=== PATIENT | female | born 1965 | race Caucasian/White ===

== ENCOUNTER → 2023-10-16 | Outpatient (CLI) | payer SELFPAY, OTHER ==
--- NOTE | 2023-10-16 06:44 | MRI_ITS ---
STUDY: MRI BRAIN WITHOUT CONTRAST REASON FOR EXAM: Female, 58 years old. CEREBRAL INFARCT TECHNIQUE: Standardized multiplanar fat and water weighted pulse sequences were obtained. COMPARISON: CT 03/20/2023 FINDINGS: There is mild cerebral atrophy with widening of the extra-axial spaces and ventricular dilatation. There are a limited number of small white matter hyperintensities, distributed throughout the deep white matter tracts of the cerebral hemispheres, consistent with mild chronic white matter ischemic changes. Large area of encephalomalacia and gliosis in the right parietal lobe consistent with a chronic right middle cerebral artery infarct. There is no evidence for recent intracranial ischemia or other cause of cytotoxic edema on diffusion weighted imaging (DWI). Normal T2* images of the brain without demonstrated susceptibility artifact. There is no demonstrated hemosiderin stain. Normal bilateral basal ganglia. Normal thalami. There is no extra-axial fluid accumulation. Normal flow voids within the major intracranial circulation suggesting patency by spin echo criteria. Normal sella turcica, pituitary gland, infundibular stalk, optic chiasm and hypothalamus. Normal tectal plate and pineal gland. Normal midbrain, catrina and medulla. Normal cerebellum. Normal basal cisterns. Normal bilateral temporal bones. Normal bilateral internal auditory canals. No demonstrated orbital abnormality, within the constraints of a routine brain study. Normal visualized paranasal sinuses. Normal calvarium and skull base. Normal visualized soft tissue structures. Normal visualized upper cervical spine. MRI/Brain without Contrast IMPRESSION: Involutional changes of the brain, as described above. Large prior right middle cerebral artery infarct with encephalomalacia and gliosis. No acute infarct. Electronically Signed: Maykel Ware MD at 14:34 EDT ,
--- NOTE | 2023-10-16 06:44 | MRI_ITS ---
STUDY: MRA OF THE HEAD WITHOUT CONTRAST REASON FOR EXAM: Female, 58 years old. CEREBRAL INFARCT TECHNIQUE: 3-D [id number] (TOF) imaging was performed with MIPs. The study was performed unenhanced. COMPARISON: None. FINDINGS: Normal bilateral petrous carotid arteries. Normal right cavernous carotid artery with a normal supraclinoid bifurcation. Normal left cavernous carotid artery with a normal supraclinoid bifurcation. Normal right A1 segments of the anterior cerebral artery. Normal left A1 segments of the anterior cerebral artery. Normal intact anterior communicating artery (ACOM). Normal bilateral A2 segments of the anterior cerebral arteries. Normal right M1 and M2 segments of the middle cerebral arteries, with a normal M1 bifurcation. Normal left M1 and M2 segments of the middle cerebral arteries, with a normal M1 bifurcation. Normal right posterior communicating artery (PCOM). Normal left posterior communicating artery (PCOM). Normal bilateral vertebral arteries. Normal basilar artery with a normal basilar bifurcation. The visualized bilateral superior cerebellar (SCA) arteries are normal. Normal bilateral P1, P2 and visualized P3 segments of the posterior cerebral arteries. There is no demonstrated aneurysm of the [place]. There is no major vessel occlusion or hemodynamically significant stenosis. There is no demonstrated abnormality of the visualized brain. MRI/MRA Head ONLY without Contrast IMPRESSION: Normal MRA of the head Electronically Signed: Maykel Ware MD at 14:40 EDT ,
--- NOTE | 2023-10-16 06:45 | MRI_ITS ---
STUDY: MRA NECK WITHOUT CONTRAST REASON FOR EXAM: Female, 58 years old. CEREBRAL INFARCT TECHNIQUE: Source images were obtained, MIPs were performed. The study was performed unenhanced. COMPARISON: None. FINDINGS: RIGHT CAROTID ARTERIES: Normal right common carotid artery (CCA). Normal right common carotid bulb. There is moderate atherosclerotic plaque formation of the origin of the right internal carotid artery with an estimated stenosis of 50-69% stenosis. Normal visualized cervical portion of the right internal carotid artery. Normal origin of the right external carotid artery (ECA). LEFT CAROTID ARTERIES: Normal left common carotid artery (CCA). Normal left common carotid bulb. There is extensive atherosclerotic plaque formation of the origin of the left internal carotid artery with an estimated stenosis of greater than 70%. Normal visualized cervical portion of the left internal carotid artery. Normal origin of the left external carotid artery (ECA). VERTEBRAL ARTERIES: Normal antegrade flow within the bilateral vertebral artery without a hemodynamically significant stenosis. MRI/MRA Neck without Contrast IMPRESSION: 1. Moderate (60%) stenosis right carotid stenosis. 2. Severe (80%) left carotid stenosis. 3. Patent vertebral arteries bilaterally. Electronically Signed: Maykel Ware MD at 14:38 EDT ,
--- NOTE | 2023-10-16 06:45 | MRI_ITS ---
STUDY: MRI LUMBAR SPINE WITHOUT CONTRAST REASON FOR EXAM: Female, 58 years old. LOW BACK PAIN, SCIATICA TECHNIQUE: Standardized fat and water weighted pulse sequences were obtained in the sagittal and axial planes. COMPARISON: None FINDINGS: T12-L1: Normal endplates. Normal disc height, hydration and morphology. Normal bilateral facet joints. Normal central canal and bilateral lateral recesses. Normal bilateral intervertebral neural foramina. Normal lumbar lordosis. Mild levoscoliosis centered at L4. Normal conus medullaris that terminates at the T12/L1. Prominent hemangioma of the T12 vertebral body extending into the right pedicle. L1-2: Mild bilateral facet hypertrophy and moderate ligament flavum hypertrophy. Mild bilobed disc protrusion produces mild spinal stenosis and mild bilateral neural foraminal stenosis. L2-3: Mild bilateral facet hypertrophy and moderate ligament flavum hypertrophy. Moderate broad disc protrusion with a superimposed small central left paracentral disc extrusion produces severe spinal stenosis with moderate bilateral lateral recess stenosis with abutment of the L3 nerve roots bilaterally and moderate bilateral neural foraminal stenosis with abutment of the exiting L2 nerve roots bilaterally. L3-4: Mild bilateral facet hypertrophy and moderate ligament flavum hypertrophy. Moderate broad disc protrusion produces moderate spinal stenosis with severe right lateral recess stenosis with effacement of the right L4 nerve root, moderate left lateral recess stenosis with abutment of the left L4 nerve root and moderate bilateral neural foraminal stenosis with abutment of the exiting L3 nerve roots bilaterally. L4-5: Mild bilateral facet hypertrophy and moderate ligament flavum hypertrophy. Moderate broad disc protrusion produces moderate spinal stenosis with moderate bilateral lateral recess stenosis with abutment of the L5 nerve roots bilaterally, moderate neural foraminal stenosis with abutment of the right L4 nerve root laterally and mild left neural foraminal stenosis. L5-S1: Normal endplates. Normal disc height, hydration and morphology. Normal bilateral facet joints. Normal central canal and bilateral lateral recesses. Normal bilateral intervertebral neural foramina. Normal visualized sacral ala. Normal visualized paraspinous soft tissue structures. MRI/Spine Lumbar (Routine) IMPRESSION: Mild levoscoliosis with degenerative disc disease as described above. Electronically Signed: Maykel Ware MD at 14:31 EDT ,
== END | disposition home or self-care (01) ==
PROVIDERS: PCP Nurse Practitioner Family; Referring Provider Nurse Practitioner Family; Visit Provider Nurse Practitioner Family
DX: I63.9 Cerebral infarction, unspecified (principal)
CPT/HCPCS: 70544; 70547; 70551; 72148

== ENCOUNTER → 2023-11-16 | Outpatient (CLI) | payer SELFPAY, OTHER ==
--- NOTE | 2023-11-16 08:51 | ECHOD_ITS ---
Reason For Study: Arrhythmia Procedure This was a 2D Doppler, Color Flow transthoracic echocardiogram. Exam performed in department. Left Ventricle Normal LV size. The estimated ejection fraction is 55 %. No evidence for diastolic dysfunction. No regional wall motion abnormalities noted. Right Ventricle Normal RV size. Normal systolic function. Atria The left and right atria are normal. Bubble contrast study negative for right to left interatrial shunt. No doppler evidence for ASD. Mitral Valve There is no mitral valve stenosis. No mitral valve insufficiency. Tricuspid Valve There is no tricuspid stenosis. Trivial tricuspid valve insufficiency. Unable to estimate RV systolic pressure due to insufficient tricuspid regurgitant envelope. Aortic Valve Trisinus/trileaflet aortic valve. Aortic sclerosis, no stenosis. There is no aortic stenosis. No aortic valve insufficiency. Pulmonic Valve There is no pulmonic valvular stenosis. No pulmonic valve insufficiency. Great Vessels Normal aortic root. Pericardium/Pleural No pericardial effusion. Medication 22 gauge I.V. with prn adaptor inserted into left arm. Performed a rapid injection of agitated mix of 9 cc saline and 1cc air to assess for atrial septal defect. MMode/2D Measurements & Calculations LVIDd: 5.3 cm IVSd: 0.95 cm Ao root diam: 3.7 cm LVIDs: 3.3 cm LVPWd: 0.87 cm LA dimension: 3.6 cm RVDd: 3.7 cm FS: 38.1 % LAV(MOD-bp): 54.4 ml LVAd ap4: 30.4 cm2 SV(MOD-sp4): 55.1 ml LAV(MOD-bp) Indexed: 29.4 ml/m2 LVLd ap4: 7.8 cm LAV(MOD-sp2): 74.3 ml EDV(MOD-sp4): 96.5 ml LAV(MOD-sp4): 33.8 ml EDV(sp4-el): 100.8 ml LVAs ap4: 18.4 cm2 LVLs ap4: 6.9 cm ESV(MOD-sp4): 41.5 ml ESV(sp4-el): 41.7 ml EF(MOD-sp4): 57.0 % EF(sp4-el): 58.6 % SV(sp4-el): 59.1 ml LA A4 area: 15.6 cm2 RA A4 area: 15.4 cm2 TAPSE: 1.6 cm Time Measurements MV dec time: 0.26 sec Doppler Measurements & Calculations MV E max alfonzo: 71.5 cm/sec Lat Peak E' Alfonzo: 10.1 cm/sec Med Peak E' Alfonzo: 7.3 cm/sec MV A max alfonzo: 82.5 cm/sec E/E' lat: 7.1 E/E' med: 9.8 MV E/A: 0.87 MV V2 max: 92.8 cm/sec MV P1/2t max alfonzo: 76.8 cm/sec Ao V2 max: 153.7 cm/sec MV max P.4 mmHg MV P1/2t: 82.6 msec Ao max P.5 mmHg MV V2 mean: 50.5 cm/sec Ao V2 mean: 102.4 cm/sec MV mean P.2 mmHg MV dec slope: 272.1 cm/sec2 Ao mean P.0 mmHg MV V2 VTI: 28.5 cm MVA(P1/2t): 2.7 cm2 Ao V2 VTI: 33.0 cm AV (velocity ratio): 0.83 LV V1 max: 122.7 cm/sec PA V2 max: 88.2 cm/sec TR max alfonzo: 180.6 cm/sec LV V1 max P.0 mmHg PA max PG (full): 1.3 mmHg TR max P.0 mmHg LV V1 mean P.2 mmHg PA V2 mean: 58.7 cm/sec LV V1 mean: 82.2 cm/sec PA mean PG (full): 0.64 mmHg LV V1 VTI: 27.2 cm ECHO/Echo Complete Interpretation Summary The estimated ejection fraction is 55 %. No evidence for diastolic dysfunction. Ordering Physician: Venus Urrutia Referring Physician: Venus Urrutia Performed By: Jacques Shannon RCS
== END | disposition home or self-care (01) ==
LOC: CVS 08:47
PROVIDERS: PCP Nurse Practitioner Family; Referring Provider Nurse Practitioner Family; Visit Provider Nurse Practitioner Family
DX: I70.0 Atherosclerosis of aorta (principal); I49.9 Cardiac arrhythmia, unspecified; H40.1 Open-angle glaucoma
CPT/HCPCS: 93306; A4216

== ENCOUNTER 2024-09-12 09:40 | Emergency (ER) | payer OTHER, SELFPAY ==
[2024-09-12] VITALS (10 sets, daily range): BP systolic 143–178; BP diastolic 82–100; PULSE 54–66; RESP 10–18; TEMP 36.1–37.1; O2SAT 94–99; BMI 33.7
--- NOTE | 2024-09-12 09:44 | ED.RN ---
VERIFIED WITH PT AND SPOUSE MULTIPLE TIMES REGARDING ON SET OF SX. BOTH STATE SX STARTED 3 WKS AGO.
--- NOTE | 2024-09-12 10:05 | RAD_ITS ---
PROCEDURE: CHEST PA AND LATERAL 09/12/2024 REASON FOR EXAM: DIZZINESS TECHNIQUE: Frontal and lateral views of the chest. COMPARISON: None. RAD/Chest PA and Lateral IMPRESSION: Lungs appear clear of acute disease. No pleural effusion or pneumothorax is noted. The cardiomediastinal silhouette is within the normal range for age. No acute osseous process is noted. No evidence of acute cardiopulmonary disease. Reading Location: [id number]
--- NOTE | 2024-09-12 10:05 | CT_ITS ---
PROCEDURE: STROKE CTA HEAD AND NECK W/CON 09/12/2024 REASON FOR EXAM: NEURO DEFICIT, ACUTE, STROKE SUSPECTED TECHNIQUE: CTA imaging of the head and neck from the aortic arch to the skull vertex with out contrast and with intravenous contrast. Multiplanar and multisequence images were obtained. CONTRAST: Isovue 370 VOLUME: 95 mL One or more dose reduction techniques were used (e.g., Automated exposure control, adjustment of the mA and/or kV according to patient size, use of iterative reconstruction technique). RADIATION DOSE SUMMARY: Not given. COMPARISON: CT head without contrast, same day. FINDINGS: Aortic Arch: There is calcific vascular disease of the aortic arch. Brachiocephalic and Subclavians: No significant calcified plaque or evidence of stenosis. RIGHT Carotid: Right CCA: No significant plaque. Right ICA: No significant plaque. Maximum stenosis (NASCET): Less than 50 % Right ECA: No significant plaque. LEFT Carotid: Left CCA: No significant plaque. Left ICA: No significant plaque. Maximum stenosis ([place]SCET): Less than 50 % Left ECA: No significant plaque. Vertebrals: The vertebral arteries are codominant. RIGHT Vertebral: No significant plaque. LEFT Vertebral: No significant plaque. Anatomy: Posterior communicating arteries are absent, a normal variant. Aneurysm or avm: None. Anterior cerebral arteries: Normal. Middle cerebral arteries: Normal left. Large chronic cortical infarction on the right. Basilar artery: Normal. Posterior cerebral arteries: Normal. Other major branches of the posterior circulation: Normal. Major venous structures: Normal. Other findings: Neck: Nothing significant. Lungs: Nothing significant. Bones: Degenerative disc disease of the cervical spine. CT/STROKE CTA Head AND Neck W/Con IMPRESSION: 1. Large chronic cortical infarction in the right MCA distribution. 2. No evidence of hemodynamically significant stenosis of the extracranial or intracranial arterial systems. Reading Location: [id number]
--- NOTE | 2024-09-12 10:05 | CT_ITS ---
PROCEDURE: STROKE BRAIN/HEAD WITHOUT CONT 09/12/2024 REASON FOR EXAM: NEURO DEFICIT, ACUTE, STROKE SUSPECTED TECHNIQUE: Head CT without intravenous contrast. Coronal and Sagittal reconstruction series were provided. One or more dose reduction techniques were used (e.g., Automated exposure control, adjustment of the mA and/or kV according to patient size, use of iterative reconstruction technique. RADIATION DOSE SUMMARY: CTDlvol: 89.9 mGy DLP: 1537.82 mGycm COMPARISON: MRI brain without contrast, 10/16/2019. FINDINGS: There is a large chronic right MCA distribution cortical infarction. There is no evidence of acute intracranial hemorrhage or infarction. There are no abnormal intracranial masses or mass effects. The ventricular system and basilar cisterns are unremarkable. The skull base and calvarium are normal. There is partial opacification of the right sphenoid sinus. The remaining visualized paranasal sinuses and mastoid air cells are unremarkable. The intraorbital contents are normal. The visualized extracranial soft tissues are normal. There is a partially calcified sebaceous cyst in the scalp over the right posterior parietal region. CT/STROKE Brain/Head without Cont IMPRESSION: 1. Chronic cortical infarction in the right MCA distribution. 2. No evidence of acute intracranial pathology. 3. Other findings as noted. Findings were called to the ordering provider in the [facility] emergency department on 09/12/2024 at 11:20 a.m. Reading Location: [id number]
--- NOTE | 2024-09-12 10:05 | EKG12_ITS ---
Test Reason : DIZZINESS Blood Pressure : */* mmHG Vent. Rate : 56 BPM Atrial Rate : 56 BPM P-R Int : 174 ms QRS Dur : 134 ms QT Int : 494 ms P-R-T Axes : 51 -63 -30 degrees QTcB Int : 476 ms Sinus bradycardia Right bundle branch block Left anterior fascicular block Bifascicular block Minimal voltage criteria for LVH, may be normal variant ( R in aVL ) Abnormal ECG Confirmed by JENNIE GRIFFITHS, TYRON ([id number]), subeditor MEI GALINDO ([id number]) on 09/15/2024 6:52:27 AM Referred By: Confirmed By: TYRON SCHNEIDER MD
--- NOTE | 2024-09-12 10:10 | EX.ED.DYSGE1 ---
HPI History of Present Illness Chief Complaint: Dizziness Narrative Narrative: Patient is a 59-year-old female with past medical history of stroke, headaches, recent seizure about 3 weeks ago who presented to the emergency department with a chief complaint of headache, dizziness. According to the patient's significant other at bedside about 3 weeks ago she was in the bathroom yelled out for help he went in to help her and had her try to walk to her recliner. He states that during this she became very stiff and appeared to be having a seizure therefore they went to [facility] and was evaluated there he states that she had a MRI and at that point time did not reveal stroke. They state that she has had persistent dizziness ever since this all occurred and notes that some days are better than others and notes that periodically she has to use a walker but other days she can ambulate without. He notes that she was having dizziness again today and he called the primary care physician's office again and they advised them to come to the emergency department. She states that she has been taking Tylenol for headache and states that she is on aspirin and other natural supplementation but denies any other medications including blood thinners. Once again they state that her symptoms are overall are unchanged. They state that they saw an neurologist recently and they advised that they need to see a seizure neurologist therefore they have an appointment scheduled with [facility] here in October. [facility] Medical History Stroke History of frequent headaches Home Medications ?Medication ?Instructions ?Recorded ?Last Taken ?Type aspirin 81 mg tablet,delayed 81 mg PO DAILY 08/22/21 09/11/24 History release (Adult Aspirin Regimen) meclizine 25 mg tablet 25 mg PO TID PRN dizziness #30 tabs 09/12/24 Unknown Rx ondansetron 4 mg disintegrating 4 mg PO Q6H PRN nausea and 09/12/24 Unknown Rx tablet vomiting #20 tabs Allergy/AdvReac Type Severity Reaction Status Date / Time No Known Allergies Allergy Verified 09/12/24 09:41 Family History no significant family his Social History Smoking Status: Never smoker ROS ROS ED ROS Narrative Constitutional: Complains of headache as noted above as well as dizziness denies fevers or chills Eyes: Denies change in vision double vision blurry vision Cardiovascular: Denies chest pain or palpitations Respiratory: Denies coughing wheezing shortness of breath Abdomen: Complains of nausea denies vomiting or diarrhea : Denies urinary symptoms Neurological: Complains of difficulty walking when she is dizzy denies any numbness or tingling Musculoskeletal: Denies back pain Skin: Denies any rashes or lesions EXAM Physical Exam Narrative Exam Narrative: General: Patient lying in bed rest comfortably do not appear to be in acute distress Head: Atraumatic, normocephalic Eyes: PERRL bilaterally, EOMI bilateral, no conjunctival injection noted Neck: Soft, supple, trachea midline Cardiovascular: Regular in rhythm Respiratory: Clear to auscultation bilaterally Abdomen: Soft, nondistended, no tenderness to palpation Extremities: +5/5 strength noted in the bilateral upper and lower extremities, radial pulses +2/4 in the bilateral extremities, no pedal edema on exam Neurological: Patient follow commands knew that she was at [facility] the year is 2024. NIH of 0 GCS 15. Patient completed finger-nose testing bilaterally without difficulty Skin: Warm, dry, intact no rashes or lesions noted Const Vital Signs: 09/12/24 09:40 09/12/24 10:05 09/12/24 10:10 Temperature 97 F L Temperature Source Temporal Pulse Rate 61 56 L Pulse Rate [Lying] Pulse Rate [Sitting (for 1 minute prior to obtaining)] Pulse Rate [Standing (for 1 minute prior to obtaining)] Respiratory Rate 14 18 Blood Pressure 165/87 H 152/92 H Blood Pressure [Lying] Blood Pressure [Sitting (for 1 minute prior to obtaining)] Blood Pressure [Standing (for 1 minute prior to obtaining)] Blood Pressure Mean 113 112 Blood Pressure Mean [Lying] Blood Pressure Mean [Sitting (for 1 minute prior to obtaining)] Blood Pressure Mean [Standing (for 1 minute prior to obtaining)] Pulse Ox 98 94 Oxygen Delivery Method Room Air Room Air Room Air 09/12/24 10:22 09/12/24 10:35 09/12/24 11:05 Temperature Temperature Source Pulse Rate 59 L 55 L Pulse Rate [Lying] 54 L Pulse Rate [Sitting (for 1 minute prior to obtaining)] 60 Pulse Rate [Standing (for 1 minute prior to obtaining)] 63 Respiratory Rate 17 14 Blood Pressure 143/91 H 143/91 H Blood Pressure [Lying] 165/82 H Blood Pressure [Sitting (for 1 minute prior to obtaining)] 178/96 H Blood Pressure [Standing (for 1 minute prior to obtaining)] 171/100 H Blood Pressure Mean 108 108 Blood Pressure Mean [Lying] 109 Blood Pressure Mean [Sitting (for 1 minute prior to obtaining)] 123 Blood Pressure Mean [Standing (for 1 minute prior to obtaining)] 123 Pulse Ox 97 96 Oxygen Delivery Method Room Air Room Air 09/12/24 11:30 09/12/24 12:20 09/12/24 12:29 Temperature 98.8 F Temperature Source Oral Pulse Rate 54 L 66 Pulse Rate [Lying] Pulse Rate [Sitting (for 1 minute prior to obtaining)] Pulse Rate [Standing (for 1 minute prior to obtaining)] Respiratory Rate 10 L 18 Blood Pressure 158/91 H 143/91 H Blood Pressure [Lying] Blood Pressure [Sitting (for 1 minute prior to obtaining)] Blood Pressure [Standing (for 1 minute prior to obtaining)] Blood Pressure Mean 113 108 Blood Pressure Mean [Lying] Blood Pressure Mean [Sitting (for 1 minute prior to obtaining)] Blood Pressure Mean [Standing (for 1 minute prior to obtaining)] Pulse Ox 98 99 Oxygen Delivery Method Room Air Room Air MDM MDM MDM Narrative Medical decision making narrative: Patient is a 59-year-old female who presented to the emergency department chief complaint of headache, dizziness, nausea and not feeling well. On the differential diagnosis includes but not limited to CVA, BPPV, carotid artery dissection, orthostatic hypotension, ACS, Lyme disease although she denies any history of rashes or possibility of tick bites. Once workup is obtained reviewed she will be reevaluated. Patient be given IV fluids. Once again the patient's symptoms have been going on and are unchanged for 3 weeks therefore the patient is not a tenecteplase candidate nor if she had a large vessel occlusion candidate Patient CBC reviewed and showed no evidence leukocytosis white blood count normal at 6.5, he was 14.4, platelet count normal at 247. Patient INR 1, PT of 13.3. Patient sodium was 142, potassium was 3.9, creatinine was 0.67. Patient's troponin was less than 6 with a delta troponin obtained at less than 6. Patient's EKG showed sinus bradycardia with right bundle branch block with a rate of 56 bpm. No previous EKG to compare to. Patient's TSH normal at 2.43 with a free T4 and T3 at 1.20 and 3.1. Total body pending. Patient's CT head and brain without contrast showed chronic cortical infarction in the right MCA distribution no evidence of acute intracranial pathology. Patient's chest x-ray reviewed by myself and by radiology showed no acute cardiopulmonary processes. 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 Patient ambulated well here in the emergency department and she states that she feels better would like to go home at this point time. She states that the medicine that I gave her meclizine helped her significantly. Once again the symptoms have been going on for at least 2-1/2 to 3 weeks and are unchanged. Patient's significant other at bedside states that shortly before the seizure episode of there was a stressful event for her as a little Bhupendra child had and she was very stressed about this. Patient was given prescription for meclizine and Zofran. She is advised that she needs to follow-up with vestibular therapy in [place]. She is advised to follow-up with the neurology team at her neck scheduled appointment. She was encouraged to follow-up with her primary care physician as well and return with any other concerns. Lab Data Labs: Laboratory Results - last 24 hr 09/12/24 09/12/24 10:10 10:18 WBC 6.5 RBC 4.81 Hgb 14.4 Hct 42.6 MCV 88.6 MCH 29.9 MCHC 33.8 RDW Std Deviation 42.2 RDW Coeff of Gino 12.9 Plt Count 247 MPV 10.7 Immature Gran % (Auto) 0.200 Neut % (Auto) 47.0 Lymph % (Auto) 43.0 H [place] % (Auto) 7.7 Eos % (Auto) 1.9 Baso % (Auto) 0.2 Absolute Neuts (auto) 3.1 Absolute Lymphs (auto) 2.78 Nucleated RBC % 0 PT 13.3 INR 1.0 APTT 25.5 Sodium 142 Potassium 3.9 Chloride 106 Carbon Dioxide 25.7 Anion Gap 10 BUN 12 Creatinine 0.67 L Estim Creat Clear Calc 98.86 Est GFR (MDRD) Non-Af 101 BUN/Creatinine Ratio 17.9 Glucose 101 H Calcium 9.8 Troponin T High Sens < 6 Troponin T Hi Sens 2 Hr < 6 TSH 2.430 Free T4 1.20 Free T3 pg/dL 3.1 Radiography Diagnostic Testing: Clinical Impression(s) from Imaging Studies Brain CT 09/12/24 10:05 IMPRESSION: 1. Chronic cortical infarction in the right MCA distribution. 2. No evidence of acute intracranial pathology. 3. Other findings as noted. Findings were called to the ordering provider in the [facility] emergency department on 09/12/2024 at 11:20 a.m. Reading Location: [facility] Chest X-Ray 09/12/24 10:05 IMPRESSION: Lungs appear clear of acute disease. No pleural effusion or pneumothorax is noted. The cardiomediastinal silhouette is within the normal range for age. No acute osseous process is noted. No evidence of acute cardiopulmonary disease. Reading Location: [address] Head/Neck CTA 09/12/24 10:05 IMPRESSION: 1. Large chronic cortical infarction in the right MCA distribution. 2. No evidence of hemodynamically significant stenosis of the extracranial or intracranial arterial systems. Reading Location: [facility] Discharge Plan Triage Chief Complaint: Dizziness ED Provider: Srinivasa Castle Dx/Rx/DC Orders Clinical Impression: Benign paroxysmal positional vertigo Instructions: Anatomy of the Ear Prescriptions: New meclizine 25 mg tablet 25 mg PO TID PRN (Reason: dizziness) Qty: 30 0RF ondansetron 4 mg tablet,disintegrating 4 mg PO Q6H PRN (Reason: nausea and vomiting) Qty: 20 0RF No Action aspirin [Adult Aspirin Regimen] 81 mg tablet,delayed release (DR/EC) 81 mg PO DAILY Primary Care Provider: Venus Urrutia NP Referrals: Venus Urrutia NP, [employer] [facility] [Primary Care Provider] - Activity Restrictions/Additional Instructions: Use the prescriptions that were sent to your pharmacy as prescribed. Return with worsening symptoms or any other concerns. There were no acute findings on your CT scans or your blood work today. Follow-up with vestibular therapy as we discussed here numbers are down below. Locations for vestibular therapy include [facility] [phone] [facility] [phone] [facility] [phone] Print Language: Luxembourgish Disposition Disposition: Home, Self Care
[2024-09-12] MEDS: Meclizine HCl 25 MG Tablet PO (10:16)
[2024-09-12] MEDS: Ondansetron 4 MG/2 ML Vial IV (10:16)
[2024-09-12] MEDS: 0.9% Normal Saline (1000mL) 1,000 ML 999 ML IV (10:16)
[2024-09-12 10:32] LABS: Absolute Lymphocyte Count 2.78 X10^3/uL (0.83-4.51); Absolute Neutrophil Count 3.1 X10^3/uL (2.0-7.7); Basophil# 0.01 X10^3/uL; Basophil% 0.2 % (0-1); Eosinophil# 0.12 X10^3/uL; Eosinophils% 1.9 % (0-5); Hematocrit 42.6 % (37-47); Hemoglobin 14.4 g/dL (12.0-15.0); Lymphocyte # 2.78 X10^3/ul (0.83-4.51); Mean Corp Hgb Conc 33.8 g/dL (32-36); Mean Corpuscular Hgb 29.9 pg (27.0-32.0); Mean Corpuscular Volume 88.6 fL (81-99); Mean Platelet Vol. 10.7 fl (6.2-12.0); Monocyte% 7.7 % (0-10); NRBC Flagged by Analyzer 0 % (0-5); Neutrophil # 3.05 X10^3/uL (2.7-7.7); Platelet Count 247 K/mm3 (150-450); RBC Distribution Width CV 12.9 % (11.6-14.6); RBC Distribution Width SD 42.2 fl (35.1-43.9); Red Blood Count 4.81 M/mm3 (4.2-5.4); White Blood Count 6.5 K/mm3 (4.4-11.0)
[2024-09-12 10:47] LABS: Prothrombin Time (Protime)PT. 13.3 SECONDS (11.7-14.9)
[2024-09-12 10:48] LABS: Partial Thromboplast Time 25.5 Seconds (24.1-36.2)
[2024-09-12 11:03] LABS: Anion Gap 10 (5-15); BUN 12 mg/dL (4-19); BUN/Creat Ratio 17.9 RATIO (10-20); Calcium,Total 9.8 mg/dL (7.6-11.0); Carbon Dioxide 25.7 mmol/L (21.0-32.0); Chloride 106 mmol/L (98-108); Creatinine, Serum 0.67 mg/dL (0.70-1.20); EST Glomerular Filtration Rate 101 (>60); Estimated Creatinine Clearance 98.86 ml/min (50-250); Free T3 3.1 pg/mL (2.18-3.98); Glucose 101 mg/dL (70-99); Potassium 3.9 mmol/L (3.3-5.1); Sodium Level 142 mmol/L (133-145); Troponin T High Sensitivity < 6 ng/L (<=14)
[2024-09-12 12:36] LABS: Troponin T High Sens 2 HR < 6 ng/L (<=14)
[2024-09-13 09:09] LABS: Lyme Scn Total Ab w/Rflx Negative (Negative)
== END 2024-09-12 13:29 | disposition home or self-care (01) ==
PROVIDERS: Emergency Provider Emergency Medicine; PCP Nurse Practitioner Family; Visit Provider Emergency Medicine
DX: H81.10 Benign paroxysmal vertigo, unspecified ear (principal); Z79.82 Long term (current) use of aspirin; Z86.73 Personal history of transient ischemic attack (TIA), and cerebral infarction without residual deficits
CPT/HCPCS: 70450; 70496; 70498; 71046; 80048; 84439; 84443; 84481; 84484; 85025; 85610; 85730; 86618; 93005; 96361; 96374; 99285; Q9967; A4216; J2405